=== PATIENT | male | born 1990 | race Caucasian/White ===

== ENCOUNTER 2017-08-21 04:18 | Emergency (ER) | payer MEDICAID ==
[~2017-08-21] VITALS: Ht 182.9 cm; Wt 66.0 kg
[2017-08-21 07:45] VITALS: BP 112/51
== END 2017-08-21 09:24 | disposition left against medical advice (07) ==
LOC: ER 09:12
DX: K08.89 Other specified disorders of teeth and supporting structures (principal); Z53.21 Procedure and treatment not carried out due to patient leaving prior to being seen by health care provider